=== PATIENT | male | born 2000 | race Caucasian/White ===

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

== ENCOUNTER 2020-05-07 03:34 | Emergency (ER) | payer BC ==
[~2020-05-07] VITALS: Ht 188 cm; Wt 79.4 kg
--- NOTE | 2020-05-07 03:42 | NUR ---
PT PRESENTED TO THE ER WITH A C/O FOREIGN BODY IN THE EYE. PT THINKS HIS CONTACT IS STUCK IN THE UPPER PART OF HIS EYE. VISUAL AQUITY WAS DONE. PT USUALY WEARS CONTACTS, BUT IS NOT WEARING THEM TODAY.
--- NOTE | 2020-05-07 04:35 | NUR ---
DR AQUINO IS AT THE BEDSIDE.
--- NOTE | 2020-05-07 04:37 | NUR ---
TETRACAINE AT THE BEDSIDE FOR MD. PT'S EYE EXAMINED BY MD AND NO CONTACT NOTED.
[2020-05-07] MEDS ORDERED: TETRACAINE HCL 0.5% OPHTALMIC 15 ML BOTTLE OP ONE (05:00)
--- NOTE | 2020-05-07 05:00 | NUR ---
Patient discharged to home in stable condition. Written and verbal after care instructions given. Patient verbalizes understanding of instruction. PT TO F/U WITH OPTHAMOLOGIST IF CONTACT DOES NOT COME TO THE FRONT OF EYE OR DISCOMFORT WORSENS.
[2020-05-07 05:01] VITALS: BP 142/82
== END 2020-05-07 05:01 | disposition home or self-care (01) ==
LOC: ER 03:37
DX: T15.82XA Foreign body in other and multiple parts of external eye, left eye, initial encounter (principal); Z88.6 Allergy status to analgesic agent; X58.XXXA Exposure to other specified factors, initial encounter; Y93.89 Activity, other specified; Y92.89 Other specified places as the place of occurrence of the external cause; Y99.8 Other external cause status

== ENCOUNTER 2022-06-14 22:14 | Emergency (ER) | payer BC ==
[~2022-06-14] VITALS: Ht 188 cm; Wt 86.2 kg
[2022-06-14 22:29] VITALS: BP 137/97
--- NOTE | 2022-06-14 22:30 | NUR ---
PT A/O X 4 C/O FB TO LEFT EAR.
== END 2022-06-14 22:41 | disposition home or self-care (01) ==
LOC: ER 22:28
DX: T16.2XXA Foreign body in left ear, initial encounter (principal); Z88.8 Allergy status to other drugs, medicaments and biological substances; X58.XXXA Exposure to other specified factors, initial encounter; Y93.89 Activity, other specified; Y92.89 Other specified places as the place of occurrence of the external cause; Y99.8 Other external cause status

== ENCOUNTER 2023-07-24 15:52 | Emergency (ER) | payer BC ==
[~2023-07-24] VITALS: Ht 188 cm; Wt 89.8 kg
[2023-07-24 16:40] VITALS: BP 164/78; TEMP 98.6; O2SAT 100
[2023-07-24] MEDS ORDERED: LORAZEPAM 0.5 MG TABLET ONE (19:27)
[2023-07-24] MEDS ORDERED: LORAZEPAM 1 MG TABLET PO ONE (19:30)
[2023-07-24] MEDS ORDERED: LORA-259 PO ×2 (20:05→20:19)
== END 2023-07-24 20:22 | disposition home or self-care (01) ==
LOC: ER 16:19
DX: F41.9 Anxiety disorder, unspecified (principal); I10 Essential (primary) hypertension; Z88.6 Allergy status to analgesic agent; Z88.8 Allergy status to other drugs, medicaments and biological substances

== ENCOUNTER 2024-05-04 20:05 | Emergency (ER) | payer BC ==
[~2024-05-04] VITALS: Ht 182.9 cm; Wt 77.1 kg
[~2024-05-04 20:05] MED LIST: LORA-259 PO
[2024-05-04 21:22] LABS: APPEARANCE,URINE CLEAR (CLEAR); BILIRUBIN,URINE NEGATIVE (NEGATIVE); BLOOD, URINE 1+ Ery/uL (NEGATIVE); COLOR,URINE YELLOW (YELLOW); KETONES,URINE NEGATIVE (NEGATIVE); LEUKOCYTE ESTERASE ,URINE NEGATIVE (NEGATIVE); NITRITE, URINE NEGATIVE (NEGATIVE); PH,URINE 7.5 (5.0-8.0); PROTEIN,URINE NEGATIVE (NEGATIVE); UGLUCOSE NEGATIVE (NEGATIVE); UROBILINOGEN,URINE 0.2 EU/dL (0.2)
[2024-05-04 21:35] LABS: ADD URINE CULTURE NO; BACTERIA,URINE Few /HPF (None Seen); SQUAMOUS EPITHELIAL CELL,UR Few /HPF (None Seen); WBC,URINE 0-2 /HPF (0-3)
[2024-05-04] MEDS ORDERED: HYDR12.55 PO (22:25)
[2024-05-04] MEDS ORDERED: HYDROCHLOROTHIAZIDE 25 MG TABLET ONE (22:43)
[2024-05-04] MEDS: HYDROCHLOROTHIAZIDE 25 MG TABLET PO ONE (22:44)
[2024-05-04 22:46] VITALS: BP 177/89; TEMP 98.2; O2SAT 98
== END 2024-05-04 22:48 | disposition home or self-care (01) ==
LOC: ER 20:07
DX: I10 Essential (primary) hypertension (principal); Z88.6 Allergy status to analgesic agent
CPT/HCPCS: 81001